=== PATIENT | male | born 1985 | race Caucasian/White ===

== ENCOUNTER 2023-03-23 10:27 | Inpatient (IN) | payer BC ==
[2023-03-23] VITALS (15 sets, daily range): BP systolic 87–120; BP diastolic 53–75
[~2023-03-23] VITALS: Ht 182.9 cm; Wt 95.2 kg
[2023-03-23 11:01] LABS: BASOPHILS ABSOLUTE AUTO 0.03 K/mm3 (0.00-0.23); BASOPHILS PERCENT AUTO 0 % (0-2); EOSINOPHILS ABSOLUTE AUTO 0.03 K/mm3 (0.00-0.68); EOSINOPHILS PERCENT AUTO 0 % (0-6); Hematocrit 43.3 % (37.0-53.0); Hemoglobin 14.6 g/dL (13.5-17.5); IMMATURE GRAN ABSOLUTE AUTO 0.01 K/mm3 (0.00-0.10); IMMATURE GRAN PERCENT AUTO 0 % (0-1); LYMPHOCYTES ABSOLUTE AUTO 3.14 K/mm3 (0.84-5.20); LYMPHOCYTES PERCENT AUTO 41 % (21-46); MONOCYTES ABSOLUTE AUTO 1.04 K/mm3 (0.16-1.47); MONOCYTES PERCENT AUTO 14 % (4-13); Mean Corpuscular HGB 30.2 pg (26.0-34.0); Mean Corpuscular HGB Conc 33.7 g/dL (31.5-36.5); Mean Corpuscular Volume 90 fL (80-100); NEUTROPHILS ABSOLUTE AUTO 3.45 K/mm3 (1.96-9.15); NEUTROPHILS PERCENT AUTO 45 % (41-73); Platelet Count 224 K/mm3 (150-400); RDW Coefficient Variation 12.9 % (11.7-14.2); RDW Standard Deviation 42.4 fL (35.1-46.3); Red Blood Cell Count 4.83 M/mm3 (4.30-5.90)
[2023-03-23 11:47] LABS: Albumin, Blood 3.8 g/dL (3.4-5.0); Bilirubin, Total 0.4 mg/dL (0.1-1.0); Bun/Creatinine Ratio 17.5 (12.0-20.0); Creatinine, Blood 0.63 mg/dL (0.60-1.20); Total Protein, Blood 7.8 g/dL (6.4-8.2)
[2023-03-23 12:04] LABS: U Amphetamine Screen Not Detected; U Barbituate Screen Not Detected; U Benzodiazapine Screen Not Detected; U Buprenorphine Screen Not Detected; U Cannabinoids Screen Not Detected; U Cocaine Screen Not Detected; U Methadone Screen Not Detected; U Methamphetamine Screen Not Detected; U Opiates Screen Not Detected; U Oxycodone Screen Not Detected; U Phencyclidine Screen Not Detected; U Propoxyphene Screen Not Detected
[2023-03-23 13:39] LABS: Adenovirus Not Detected (NOT DETECT); Coronavirus 229E Not Detected (NOT DETECT)
[2023-03-23 13:40] LABS: Bordetella pertussis Not Detected (NOT DETECT); Chlamydophila pneumoniae Not Detected (NOT DETECT); Coronavirus HKU1 Not Detected (NOT DETECT); Coronavirus NL63 Not Detected (NOT DETECT); Coronavirus OC43 Not Detected (NOT DETECT); Human Metapneumovirus Not Detected (NOT DETECT); Human Rhinovirus/Enterovirus Not Detected (NOT DETECT); Influenza A/2009-H1 Not Detected (NOT DETECT); Influenza A/H1 Not Detected (NOT DETECT); Influenza A/H3 Not Detected (NOT DETECT); Influenza B Not Detected (NOT DETECT); Mycoplasma pneumoniae Not Detected (NOT DETECT); Parainfluenza Virus 1 Not Detected (NOT DETECT); Parainfluenza Virus 2 Not Detected (NOT DETECT); Parainfluenza Virus 3 Not Detected (NOT DETECT); Parainfluenza Virus 4 Not Detected (NOT DETECT); Respiratory Syncytial Virus Not Detected (NOT DETECT); SARS-Cov-2 (COVID-19), BioFire Not Detected (NOT DETECT)
--- NOTE | 2023-03-23 16:00 | NUR ---
REPORT RECEIVED FROM ER NURSE MIKE. ASSUMED CARE OF PATIENT AT 1600. PATIENT IS BEGINNING TO WAKE UP AND IS BECOMING TEARFUL. HE IS REDIRECTED TO WHERE HE IS AND HIS CURRENT SIUTATION. PATIENT TOLERATED TRANSFER BETWEEN BEDS AND REPOSITIONING WELL. IS AT THE BEDSIDE, WHICH BRINGS PATIENT ADDITIONAL COMFORT.
--- NOTE | 2023-03-23 17:15 | NUR ---
ORDER RECEIVED FROM DR. VU TO EXTUBATE PATIENT. SUCCESSFULLY EXTUBATED AT 1715 WITH RT, RN, AND DIRECTOR OF STRATEGIC PARTNERSHIPS AT BEDSIDE. PATIENT TOLERATED WELL. AT BEDSIDE.
--- NOTE | 2023-03-23 18:16 | NUR ---
PATIENT ARRIVED TO ICU FROM ED AT 1400. EVALUATED BY ANODE BUILDER WHO RECOMMENDED SBT. PT TOLERATED WELL AND WAS SUBSEQUENTLY EXTUBATED. ALL ASSESSMENT DATA WNL. PERIPHERAL IV'S SALINE LOCKED. ADMISSION COMPLETED WITH AND PT. PLAN TO KEEP IN ICU OVERNIGHT PER DR. VU. CONTINUE TO MONITOR.
--- NOTE | 2023-03-23 21:45 | NUR ---
ASSUMED CARE ASSUMED CARE AT 1900. PT A/O X 4. FOLLOWING DIRECTIONS AND ABLE TO COMMUNICATE NEEDS. VSS. SINUS TACH RATE 110-120'S. SBP SOFT AT TIMES. ON 2L NC W/ SPO2 GREATER THAN 92%. PT DOWN TO 86% WHEN SLEEPING W/ O2 OFF. DENIES CHEST/ABD PAIN AND N/V. PT C/O PAIN IN THROAT, ABLE TO TOLERATE ICE CHIPS AND WATER AT THIS TIME. PT STATES HE IS TIRED AND FALLS ASLEEP EASILY. PT AT BEDSIDE DURING SHIFT CHANGE AND UPDATED ON POC. CALL LIGHT IN REACH.
[2023-03-24] VITALS (14 sets, daily range): BP systolic 88–119; BP diastolic 55–83
[2023-03-24 04:09] LABS: BASOPHILS ABSOLUTE AUTO 0.02 K/mm3 (0.00-0.23); BASOPHILS PERCENT AUTO 0 % (0-2); EOSINOPHILS PERCENT AUTO 0 % (0-6); Hematocrit 40.8 % (37.0-53.0); Hemoglobin 13.8 g/dL (13.5-17.5); IMMATURE GRAN ABSOLUTE AUTO 0.03 K/mm3 (0.00-0.10); IMMATURE GRAN PERCENT AUTO 0 % (0-1); LYMPHOCYTES ABSOLUTE AUTO 2.07 K/mm3 (0.84-5.20); LYMPHOCYTES PERCENT AUTO 22 % (21-46); MONOCYTES ABSOLUTE AUTO 1.16 K/mm3 (0.16-1.47); MONOCYTES PERCENT AUTO 12 % (4-13); Mean Corpuscular HGB 30.6 pg (26.0-34.0); Mean Corpuscular HGB Conc 33.8 g/dL (31.5-36.5); Mean Corpuscular Volume 91 fL (80-100); Mean Platelet Volume 9.7 fL (9.1-12.4); NEUTROPHILS ABSOLUTE AUTO 6.05 K/mm3 (1.96-9.15); NEUTROPHILS PERCENT AUTO 65 % (41-73); Platelet Count 203 K/mm3 (150-400); RDW Coefficient Variation 13.6 % (11.7-14.2); RDW Standard Deviation 45.1 fL (35.1-46.3); Red Blood Cell Count 4.51 M/mm3 (4.30-5.90); White Blood Cell Count 9.33 K/mm3 (4.00-11.30)
[2023-03-24 04:27] LABS: Bun/Creatinine Ratio 16.2 (12.0-20.0); Calcium, Blood 8.3 mg/dL (8.5-10.1); Creatinine, Blood 0.68 mg/dL (0.60-1.20)
--- NOTE | 2023-03-24 05:36 | NUR ---
SHIFT SUMMARY NO ACUTE EVENTS T/O NIGHT. APPROX 2300 PT HAD INCREASING HR SUSTAINING 120'S AND 150'S WHEN UP TO BATHROOM. SBP TRENDED DOWN. DR VU CALLED AND ORDER RECEIVED FOR 1L LR BOLUS. HR THEN DECREASED TO 100'S. SBP CONTINUES TO BE SOFT. MAX TEMP 100.4. OTHER VSS. ON 2L NC. PT ONE ASSIST TO BATHROOM. WILL REPORT OFF TO ONCOMING NURSE.
--- NOTE | 2023-03-24 07:05 | NUR ---
ASSUMED CARE OF PATIENT AND RECEIVED REPORT FROM GLASS ENAMEL MIXER NURSE. PATIENT IS AWAKE AND PLEASANT, RESTING IN ROOM WITH HIS LIGHTS OFF; ANXIOUS TO GO HOME AND ALSO LOOKING FORWARD TO BREAKFAST. HIS VOICE IS CLEARER TODAY WITH NO AUDIBLE HOARSENESS. BP AT 95/55. HR 107.
[2023-03-24] MEDS ORDERED: AMOCLA875 PO (11:43)
[2023-03-24] MEDS ORDERED: FOLI1 PO (11:44)
[2023-03-24] MEDS ORDERED: B-1100 M1 PO (11:44)
[2023-03-24] MEDS ORDERED: Acetaminophen650 M1 PO (11:45)
--- NOTE | 2023-03-24 12:45 | NUR ---
DISCHARGE SUMMARY DISCHARGE PAPERWORK REVIEWED WITH PATIENT. HE EXHIBITED UNDERSTANDING REGARDING INSTRUCTIONS FOLLOWING DISCHARGE AND SIGNED FORM. PATIENT DRESSED HIMSELF AND ELECTED TO WALK INSTEAD OF UTILIZING WHEELCHAIR OUT OF THE HOSPITAL. PATIENT WAS ESCORTED BY STUDENT NURSE AND HIS TO THE PATIENT EXTRANCE/EXIT.
== END 2023-03-24 13:25 | disposition home or self-care (01) | DRG 208 ==
LOC: ER 10:27 → ICUW 14:07
PROVIDERS: Emergency Medicine; ADMIT Internal Medicine
PROC: 5A1935Z Respiratory Ventilation, Less than 24 Consecutive Hours (ICD-10-PCS; principal; 2023-03-23)
PROC: 0BH17EZ Insertion of Endotracheal Airway into Trachea, Via Natural or Artificial Opening (ICD-10-PCS; 2023-03-23)
PROC: 0D9670Z Drainage of Stomach with Drainage Device, Via Natural or Artificial Opening (ICD-10-PCS; 2023-03-23)
PROC: HZ2ZZZZ Detoxification Services for Substance Abuse Treatment (ICD-10-PCS; 2023-03-23)
DX: J96.00 Acute respiratory failure, unspecified whether with hypoxia or hypercapnia (principal); J69.0 Pneumonitis due to inhalation of food and vomit; F10.229 Alcohol dependence with intoxication, unspecified; R73.9 Hyperglycemia, unspecified; R00.0 Tachycardia, unspecified; Y90.8 Blood alcohol level of 240 mg/100 ml or more; Z20.822 Contact with and (suspected) exposure to COVID-19; Z87.01 Personal history of pneumonia (recurrent); Z79.82 Long term (current) use of aspirin
CPT/HCPCS: 0202U; 31500; 36415; 51702; 70450; 71045; 80048; 80053; 83605; 83690; 83735; 84443; 85025; 87040; 93005; 93010; 94002; 94761; 96361; 96374; 96375; 99285-25; C9113; G0480; J0696; J1650; J2405; J2704; J3411; J7030; J7120

== ENCOUNTER → 2025-10-13 | Outpatient (CLI) | payer BC ==
[~2025-10-13] MED LIST: AMOCLA875 PO; Acetaminophen650 M1 PO; B-1100 M1 PO; FOLI1 PO
[2025-10-13 17:02] LABS: Chlamydia Trachomatis Throat NOT DETECTED (NOT DETECT); Neisseria Gonorrhoea Throat NOT DETECTED (NOT DETECT)
[2025-10-15 10:22] LABS: HIV 1,2 COMBO ANTIGEN/ANTIBODY Negative (Negative)
[2025-10-15 12:47] LABS: HEPATITIS A ANTIBODY, IGM Negative (Negative); HEPATITIS C AB CIA INTERP Negative (Negative); HEPATITIS C ANTIBODY CIA INDEX 0.04 IV
== END | disposition home or self-care (01) ==
LOC: LAB 14:17 → LAB SHORT 14:17
PROVIDERS: Physician Assistant
DX: Z11.3 Encounter for screening for infections with a predominantly sexual mode of transmission (principal)
CPT/HCPCS: 80074; 86592; 87389; 87491; 87591